=== PATIENT | male | born 1995 | race Caucasian/White ===

== ENCOUNTER 2016-05-03 18:26 | Emergency (ER) | payer OTHER | END 2016-05-03 19:40 | disposition home or self-care (01) | LOC: ER 18:26 | DX: L02.413 Cutaneous abscess of right upper limb (principal); B37.2 Candidiasis of skin and nail; F90.9 Attention-deficit hyperactivity disorder, unspecified type; F17.210 Nicotine dependence, cigarettes, uncomplicated | CPT/HCPCS: 90471 ==

== ENCOUNTER 2016-05-31 10:43 | Emergency (ER) | payer OTHER | END 2016-05-31 13:00 | disposition home or self-care (01) | LOC: ER 10:43 | DX: S60.221A Contusion of right hand, initial encounter (principal); F90.9 Attention-deficit hyperactivity disorder, unspecified type; F17.210 Nicotine dependence, cigarettes, uncomplicated; W01.0XXA Fall on same level from slipping, tripping and stumbling without subsequent striking against object, initial encounter ==

== ENCOUNTER 2016-08-03 17:19 | Emergency (ER) | payer OTHER | END 2016-08-03 17:37 | disposition home or self-care (01) | LOC: ER 17:19 | DX: H66.91 Otitis media, unspecified, right ear (principal); F90.9 Attention-deficit hyperactivity disorder, unspecified type; F17.210 Nicotine dependence, cigarettes, uncomplicated ==